=== PATIENT | female | born 1925 | race Caucasian/White ===

== ENCOUNTER 2016-08-12 15:32 | Inpatient (IN) | payer MEDICARE, OTHER ==
[2016-08-12] MEDS ORDERED: IPRATROPIUM-ALBUTEROL 3 ML NEB INHALATION STA ×2 (17:40→19:32)
[2016-08-12] MEDS ORDERED: SODIUM CHLORIDE 0.9% 1,000 ML IV STA (17:40)
--- NOTE | 2016-08-12 17:44 | ED ---
Back Pain HPI - General Chief Complaint: Back Pain/Injury Stated Complaint: Back Pain Time Seen by Provider: 08/12/16 17:20 Source: patient, family, RN notes reviewed Limitations: no limitations - History of Present Illness Initial Comments: This is a 89-year-old female history of multiple medical problems who presents with complaints of cough shortness of breath and low back pain. She states she was recently given a course of antibiotics by her oncologist she is feeling shows that she still has a cough no gross amounts of phlegm shortness of breath with exertion also increased low back pain especially today she states she had a hard time walking because of low back pain. States pain is the left lower part of her back. She denies any overt fevers chills nausea vomiting diarrhea sweats dysuria. MD Complaint: back pain, other - Related Data Home Medications Medication Instructions Recorded Confirmed Levothyroxine Sodium [Synthroid] 25 mcg PO QAM 12/11/13 08/12/16 Omeprazole [PriLOSEC] 20 tab PO Q48H 12/11/13 08/12/16 Aspirin EC [Ecotrin Low Dose] 81 mg PO HS 08/21/14 08/12/16 Multivitamins, Thera [Multivitamin] 1 tab PO HS 08/21/14 08/12/16 Ergocalciferol [Vitamin D2 50,000 unit PO QMONTH 07/13/15 08/12/16 (DRISDOL)] Furosemide [Lasix] 20 mg PO QAM 07/13/15 08/12/16 Ipratropium-Albuterol Nebulize 3 ml INHALATION RT-TID 07/13/15 08/12/16 [Duoneb 0.5 mg-3 mg/3 ml Soln] Losartan [Cozaar] 25 mg PO QAM 07/13/15 08/12/16 Acetaminophen Tab [Tylenol Tab] 325 mg PO Q6H PRN 08/12/16 08/12/16 Bimatoprost [Lumigan .01% Ophth 1 drop BOTH EYES DAILY 08/12/16 08/12/16 Soln] Dorzolamide 2% [Trusopt 2%] 1 drops BOTH EYES BID 08/12/16 08/12/16 Letrozole [Femara] 2.5 mg PO DAILY 08/12/16 08/12/16 Meclizine [Antivert] 25 mg PO TID PRN 08/12/16 08/12/16 Previous Rx's Medication Instructions Recorded Budesonide [Pulmicort] 0.5 mg INHALATION RT-BID #60 nebu 08/25/14 Carvedilol [Coreg] 6.25 mg PO AC-BID #60 tab 08/25/14 Allergies Allergy/AdvReac Type Severity Reaction Status Date / Time No Known Allergies Allergy Verified 08/12/16 16:46 Review of Systems ROS Statement: Those systems with pertinent positive or pertinent negative responses have been documented in the HPI. ROS Other: All systems not noted in ROS Statement are negative. Past Medical History Past Medical History: Cancer, Heart Failure, Hypertension, Osteoarthritis (OA), Thyroid Disorder Additional Past Medical History / Comment(s): RIGHT BREAST CA-2002,cyst on bilat kidneys,fx ankle History of Any Multi-Drug Resistant Organisms: None Reported Past Surgical History: Breast Surgery, Joint Replacement, Orthopedic Surgery Additional Past Surgical History / Comment(s): RIGHT MASTECTOMY. BOTH KNEES REPL. cataracts removed bilat Past Anesthesia/Blood Transfusion Reactions: No Reported Reaction Past Psychological History: No Psychological Hx Reported Smoking Status: Never smoker Past Alcohol Use History: None Reported Past Drug Use History: None Reported - Past Family History Sister(s) Family Medical History: Cancer Additional Family Medical History / Comment(s): breast Son(s) Family Medical History: Cancer Father Family Medical History: Cancer General Exam - General Exam Comments Initial Comments: Is a well-developed well-nourished awake alert oriented 3 female Limitations: no limitations General appearance: alert, in no apparent distress Head exam: Present: atraumatic, normocephalic, normal inspection Eye exam: Present: normal appearance, PERRL, EOMI. Absent: scleral icterus, conjunctival injection, periorbital swelling ENT exam: Present: mucous membranes dry Neck exam: Present: normal inspection. Absent: tenderness, meningismus, lymphadenopathy Respiratory exam: Present: wheezes, decreased breath sounds. Absent: respiratory distress, rales, rhonchi, stridor Cardiovascular Exam: Present: regular rate, normal rhythm, normal heart sounds. Absent: systolic murmur, diastolic murmur, rubs, gallop, clicks GI/Abdominal exam: Present: soft, normal bowel sounds. Absent: distended, tenderness, guarding, rebound, rigid Extremities exam: Present: normal inspection, full ROM, normal capillary refill. Absent: tenderness, pedal edema, joint swelling, calf tenderness Back exam: Present: tenderness, paraspinal tenderness (The paraspinous tenderness at the mid to lower lumbar level. No spinous process tenderness however. No sciatic fell at tenderness.) Neurological exam: Present: alert, oriented X3, CN II-XII intact Psychiatric exam: Present: normal affect, normal mood Skin exam: Present: warm, dry, intact, normal color. Absent: rash Course Vital Signs 08/12/16 08/12/16 08/12/16 15:42 17:31 18:15 Temperature 98.5 F Pulse Rate 77 85 84 Respiratory 20 18 Rate Blood Pressure 165/74 173/95 O2 Sat by Pulse 93 L 91 L Oximetry 08/12/16 08/12/16 18:28 18:41 Temperature Pulse Rate 81 82 Respiratory 18 Rate Blood Pressure 167/85 O2 Sat by Pulse 94 L Oximetry - Reevaluation(s) Reevaluation #1: 08/12/16 19:31 Patient is still dyspneic with diffuse wheezing. She denies any chest pain she still is a left low back pain additionally her saturation is between 89 and 92 on oxygen supplementation she does desaturate was very minimal movement and even with talking. Medical Decision Making - Lab Data Result diagrams: 08/12/16 17:53 08/12/16 17:53 Lab Results 08/12/16 08/12/16 08/12/16 Range/Units 17:53 17:53 17:53 WBC 9.2 (3.8-10.6) k/uL RBC 4.11 (3.80-5.40) m/uL Hgb 12.2 (11.4-16.0) gm/dL Hct 37.8 (34.0-46.0) % MCV 91.9 (80.0-100.0) fL MCH 29.8 (25.0-35.0) pg MCHC 32.4 (31.0-37.0) g/dL RDW 12.6 (11.5-15.5) % Plt Count 251 (150-450) k/uL Neutrophils % 76 % Lymphocytes % 12 % Monocytes % 8 % Eosinophils % 2 % Basophils % 0 % Neutrophils # 7.0 (1.3-7.7) k/uL Lymphocytes # 1.1 (1.0-4.8) k/uL Monocytes # 0.8 (0-1.0) k/uL Eosinophils # 0.2 (0-0.7) k/uL Basophils # 0.0 (0-0.2) k/uL PT (9.0-12.0) sec INR (<1.1) APTT (22.0-30.0) sec Sodium 140 (137-145) mmol/L Potassium 4.7 (3.5-5.1) mmol/L Chloride 99 (98-107) mmol/L Carbon Dioxide 32 H (22-30) mmol/L Anion Gap 9 mmol/L BUN 23 H (7-17) mg/dL Creatinine 1.63 H (0.52-1.04) mg/dL Est GFR (MDRD) Af Amer 36 (>60 ml/min/1.73 sqM) Est GFR (MDRD) Non-Af 30 (>60 ml/min/1.73 sqM) Glucose 142 H (74-99) mg/dL Calcium 9.0 (8.4-10.2) mg/dL Magnesium 1.6 (1.6-2.3) mg/dL Total Bilirubin 0.5 (0.2-1.3) mg/dL AST 35 (14-36) U/L ALT 33 (9-52) U/L Alkaline Phosphatase 96 (38-126) U/L Total Creatine Kinase 66 (30-135) U/L CK-MB (CK-2) 1.4 (0.0-2.4) ng/mL CK-MB (CK-2) Rel Index 2.1 Troponin I 0.031 (0.000-0.034) ng/mL NT-Pro-B Natriuret Pep pg/mL Total Protein 6.4 (6.3-8.2) g/dL Albumin 3.4 L (3.5-5.0) g/dL 08/12/16 08/12/16 Range/Units 17:53 17:53 WBC (3.8-10.6) k/uL RBC (3.80-5.40) m/uL Hgb (11.4-16.0) gm/dL Hct (34.0-46.0) % MCV (80.0-100.0) fL MCH (25.0-35.0) pg MCHC (31.0-37.0) g/dL RDW (11.5-15.5) % Plt Count (150-450) k/uL Neutrophils % % Lymphocytes % % Monocytes % % Eosinophils % % Basophils % % Neutrophils # (1.3-7.7) k/uL Lymphocytes # (1.0-4.8) k/uL Monocytes # (0-1.0) k/uL Eosinophils # (0-0.7) k/uL Basophils # (0-0.2) k/uL PT 10.1 (9.0-12.0) sec INR 1.0 (<1.1) APTT 22.8 (22.0-30.0) sec Sodium (137-145) mmol/L Potassium (3.5-5.1) mmol/L Chloride (98-107) mmol/L Carbon Dioxide (22-30) mmol/L Anion Gap mmol/L BUN (7-17) mg/dL Creatinine (0.52-1.04) mg/dL Est GFR (MDRD) Af Amer (>60 ml/min/1.73 sqM) Est GFR (MDRD) Non-Af (>60 ml/min/1.73 sqM) Glucose (74-99) mg/dL Calcium (8.4-10.2) mg/dL Magnesium (1.6-2.3) mg/dL Total Bilirubin (0.2-1.3) mg/dL AST (14-36) U/L ALT (9-52) U/L Alkaline Phosphatase (38-126) U/L Total Creatine Kinase (30-135) U/L CK-MB (CK-2) (0.0-2.4) ng/mL CK-MB (CK-2) Rel Index Troponin I (0.000-0.034) ng/mL NT-Pro-B Natriuret Pep 3970 pg/mL Total Protein (6.3-8.2) g/dL Albumin (3.5-5.0) g/dL - EKG Data -: EKG Interpreted by Ga EKG shows normal: sinus rhythm (Sinus rhythm rate 77 appear of 01 60 QRS duration 140 QT/QTC of 14/473. Left axis deviation left bundle-branch block pattern.) - Radiology Data Radiology results: report reviewed (I did review the x-ray report no definite acute findings.), image reviewed Critical Care Time Critical Care Time: Yes Critical Care Time: 31 minutes which includes initial presentation with history physical lab and x- ray orders. Initial treatment and reevaluation on several occasions for responsive treatment. Review of old charting that was available. Discussion with the patient's family regarding the findings. Discussion with the admitting physician. Orders and documentation of the above. Disposition Clinical Impression: Chronic obstructive pulmonary disease with acute exacerbation, Heart failure, Hypoxemia, Exertional dyspnea Disposition: ADMITTED IP TO THIS HOSP Condition: Stable
[2016-08-12 18:03] LABS: Basophils % (A) 0 %; CH 29.6; CHCM 32.3; Eosinophils # (A) 0.2 k/uL (0-0.7); Eosinophils % (A) 2 %; HCT 37.8 % (34.0-46.0); HDW 2.67; HGB 12.2 gm/dL (11.4-16.0); Luc # (Auto) 0.17; Luc % (Auto) 2; Lymphocytes # (A) 1.1 k/uL (1.0-4.8); Lymphocytes % (A) 12 %; MCH 29.8 pg (25.0-35.0); MCHC 32.4 g/dL (31.0-37.0); MCV 91.9 fL (80.0-100.0); Mean Platelet Volume 8.3; Monocytes # (A) 0.8 k/uL (0-1.0); Monocytes % (A) 8 %; Neutrophils % (A) 76 %; RBC 4.11 m/uL (3.80-5.40); RDW 12.6 % (11.5-15.5); WBC 9.2 k/uL (3.8-10.6); WBC (Perox) 9.22
[2016-08-12 18:13] LABS: Partial Thromboplastin Time 22.8 sec (22.0-30.0); Prothrombin Time 10.1 sec (9.0-12.0)
[2016-08-12 18:27] LABS: Magnesium 1.6 mg/dL (1.6-2.3); Potassium 4.7 mmol/L (3.5-5.1); Total Bilirubin 0.5 mg/dL (0.2-1.3); Total Protein 6.4 g/dL (6.3-8.2)
[2016-08-12 18:36] LABS: Creatine Kinase MB 1.4 ng/mL (0.0-2.4); Troponin I 0.031 ng/mL (0.000-0.034)
--- NOTE | 2016-08-12 18:38 | XR ---
EXAMINATION TYPE: XR chest 2V DATE OF EXAM: 08/12/2016 6:34 PM COMPARISON: 03/16/2016 HISTORY: Difficulty breathing TECHNIQUE: Frontal and lateral views of the chest are obtained. FINDINGS: Heart is probably enlarged. There is a large hiatal hernia. There are no hilar masses. The re is no heart failure. There is no pleural effusion. Thoracic aorta is atheromatous. IMPRESSION: Large hiatal hernia. Mild cardiomegaly. No acute lung disease. No change.
[2016-08-12] MEDS ORDERED: KETOROLAC 30 MG/ML 1 ML VIAL IVP STA (19:29)
[2016-08-12] MEDS ORDERED: methylPREDNISolone SOD SUCCI 125 MG/2 ML VIAL IV STA (19:29)
[2016-08-12] MEDS ORDERED: NITROGLYCERIN OINT 1 INCH/GM PACKET TOPICAL STA (19:30)
[2016-08-12] MEDS ORDERED: FUROSEMIDE 10 MG/ML 4 ML VIAL IV STA (19:30)
[2016-08-12] MEDS ORDERED: ACETAMINOPHEN TAB 325 MG TAB PO PRN (19:37)
[2016-08-12] MEDS ORDERED: MECLIZINE 25 MG TAB PO PRN (19:37)
[2016-08-12] MEDS: IPRATROPIUM-ALBUTEROL 3 ML NEB INHALATION SCH (20:57)
[2016-08-12] MEDS: DORZOLAMIDE HCL 2% DROPS 10 ML BTL BOTH EYES SCH (21:20)
[2016-08-12] MEDS: PANTOPRAZOLE 40 MG TABLET PO SCH (21:20)
[2016-08-12] MEDS: ASPIRIN 81 MG CHEW PO SCH (21:20)
[2016-08-12] MEDS: SODIUM CHLORIDE 0.9% 1,000 ML IV SCH (21:23)
[2016-08-12] MEDS: NITROGLYCERIN OINT 1 INCH/GM PACKET TOPICAL SCH (23:41)
[2016-08-13] MEDS ORDERED: methylPREDNISolone SOD SUCCI 125 MG/2 ML VIAL IV SCH
[2016-08-13] MEDS: IPRATROPIUM-ALBUTEROL 3 ML NEB INHALATION SCH ×6 (00:38→19:41)
[2016-08-13] MEDS: NITROGLYCERIN OINT 1 INCH/GM PACKET TOPICAL SCH ×3 (05:22→17:26)
[2016-08-13] MEDS: LEVOTHYROXINE 25 MCG TAB PO SCH (05:22)
[2016-08-13] MEDS: LATANOPROST 0.005% OPHTH DROPS 2.5 ML BTL BOTH EYES SCH (08:52)
[2016-08-13] MEDS: DORZOLAMIDE HCL 2% DROPS 10 ML BTL BOTH EYES SCH ×2 (08:52→20:29)
[2016-08-13] MEDS: FUROSEMIDE 10 MG/ML 4 ML VIAL IV SCH ×2 (08:54→20:28)
[2016-08-13] MEDS: CARVEDILOL 6.25 MG TAB PO SCH ×2 (08:54→17:26)
[2016-08-13] MEDS: LOSARTAN 25 MG TAB PO SCH (08:55)
[2016-08-13] MEDS ORDERED: LETROZOLE 2.5 MG TAB PO SCH (09:00)
[2016-08-13] MEDS ORDERED: FUROSEMIDE 40 MG TAB PO SCH (09:00)
--- NOTE | 2016-08-13 11:42 | P.CNPUL ---
History of Present Illness Consult date: 08/13/16 Requesting physician: Bismark Perry Reason for consult: COPD Chief complaint: Shortness of breath History of present illness: This is an 89-year-old female evaluated and examined today on the fifth floor. The patient came in to the emergency room complaining of shortness of breath and low back pain. She states that recently her oncologist gave her antibiotics and it did not alter and the coughing continues with white sputum. The patient feels that all of the coughing has caused her to have the back pain , and the pain is making it difficult ambulate. The patient denies any chest pain, fevers, chills, nausea, vomiting, diarrhea, or sweats. Upon examination the patient is resting in bedside chair, she continues to complain of chronic persistent cough, and has been bringing up white to pale yellow sputum today. The patient states that she feels very congested in her chest and feels she needs some medication to help her health center assistant bringing up sputum. Review of Systems 14 point review of systems was completed and is negative other than what's noted in the HPI Past Medical History Past Medical History: Cancer, Heart Failure, Hypertension, Osteoarthritis (OA), Thyroid Disorder Additional Past Medical History / Comment(s): RIGHT BREAST CA-2002,cyst on bilat kidneys,fx ankle History of Any Multi-Drug Resistant Organisms: None Reported Past Surgical History: Breast Surgery, Joint Replacement, Orthopedic Surgery Additional Past Surgical History / Comment(s): RIGHT MASTECTOMY. BOTH KNEES REPL. cataracts removed bilat Past Anesthesia/Blood Transfusion Reactions: No Reported Reaction Past Psychological History: No Psychological Hx Reported Smoking Status: Never smoker Past Alcohol Use History: None Reported Past Drug Use History: None Reported - Past Family History Sister(s) Family Medical History: Cancer Additional Family Medical History / Comment(s): breast Son(s) Family Medical History: Cancer Father Family Medical History: Cancer Medications and Allergies Home Medications Medication Instructions Recorded Confirmed Type Levothyroxine Sodium [Synthroid] 25 mcg PO QAM 12/11/13 08/12/16 History Omeprazole [PriLOSEC] 20 tab PO Q48H 12/11/13 08/12/16 History Aspirin EC [Ecotrin Low Dose] 81 mg PO HS 08/21/14 08/12/16 History Multivitamins, Thera [Multivitamin] 1 tab PO HS 08/21/14 08/12/16 History Ergocalciferol [Vitamin D2 50,000 unit PO QMONTH 07/13/15 08/12/16 History (DRISDOL)] Furosemide [Lasix] 20 mg PO QAM 07/13/15 08/12/16 History Ipratropium-Albuterol Nebulize 3 ml INHALATION RT-TID 07/13/15 08/12/16 History [Duoneb 0.5 mg-3 mg/3 ml Soln] Losartan [Cozaar] 25 mg PO QAM 07/13/15 08/12/16 History Acetaminophen Tab [Tylenol Tab] 325 mg PO Q6H PRN 08/12/16 08/12/16 History Bimatoprost [Lumigan .01% Ophth 1 drop BOTH EYES DAILY 08/12/16 08/12/16 History Soln] Dorzolamide 2% [Trusopt 2%] 1 drops BOTH EYES BID 08/12/16 08/12/16 History Meclizine [Antivert] 25 mg PO TID PRN 08/12/16 08/12/16 History Allergies Allergy/AdvReac Type Severity Reaction Status Date / Time No Known Allergies Allergy Verified 08/12/16 16:46 Physical Exam Vitals: Vital Signs Temp Pulse Pulse Resp BP Pulse Ox 08/13/16 11:10 84 08/13/16 08:23 98.5 F 83 18 148/73 93 L 08/13/16 07:27 80 08/13/16 07:18 79 08/12/16 21:40 98.6 F 82 16 133/63 93 L Intake and Output 08/12/16 08/13/16 08/13/16 22:59 06:59 14:59 Intake Total 160 Balance 160 Intake: IV 160 Sodium Chloride 0.9% 1, 160 000 ml @ 20 mls/hr IV . Q24H [facility] Rx#:[id number] Other: Voiding Method Bedside Commode Bedside Commode # Voids 1 1 1 Weight 76.657 kg GENERAL EXAM: Alert, active, comfortable in no apparent distress. HEAD: Normocephalic. EYES: Normal reaction of pupils, equal size. NOSE: Clear with pink turbinates. THROAT: No erythema or exudates. NECK: No masses, no JVD. CHEST: No chest wall deformity. LUNGS: Equal air entry with inspiratory and expiratory wheezing noted. Bases diminished CVS: S1 and S2 normal with no audible mumurs, regular rhythm. ABDOMEN: No hepatosplenomegaly, normal bowel sounds, no guarding or rigidity. EXTREMITIES: No edema noted, pedal pulses palpable. SKIN: No rashes CENTRAL NERVOUS SYSTEM: No focal deficits, tone is normal in all 4 extremities. Results - Laboratory Findings CBC and BMP: 08/12/16 17:53 08/12/16 17:53 PT/INR, D-dimer PT 10.1 sec (9.0-12.0) 08/12/16 17:53 INR 1.0 (<1.1) 08/12/16 17:53 - Diagnostic Findings Chest x-ray: report reviewed, image reviewed Assessment and Plan Plan: Assessment Acute exacerbation of COPD Tracheobronchitis Acute Hypoxemia Exertional dyspnea Congestive heart failure History of hypertension Plan Medications reviewed and will be continued. We will add budesonide to her nebulizer treatments. We will start with the inhaled steroid to protect kidney function, however possibly will add IV steroids if patient doesn't respond to inhaled steroids. We will also add guaifenesin cough syrup as well as a flutter valve to help bring up her secretions. Continue with supportive care. Continue with supplemental oxygen to keep saturations above 92%. We will continue to monitor labs and adjust treatment as necessary. I performed an examination of the patient and discussed their management with the nurse practitioner. I have reviewed the nurse practitioner's note and agree with the documented findings and plan of care.
[2016-08-13] MEDS: AZITHROMYCIN 500 MG in SODIUM CHLORIDE 0.9% 250 ML IVPB SCH (14:34)
--- NOTE | 2016-08-13 14:54 | P.HPIM ---
History of Present Illness H&P Date: 08/13/16 Chief Complaint: Shortness of breath, cough This is an 89-year-old female patient of Dr. Bobby Camarillo and she also follows with Dr. Samayoa and Dr. Moore. She sees Dr. Camarillo every 6 months and she has an appointment next week. She has underlying history of hypothyroidism, CAD, hypertension and breast cancer diagnosed in 2002, COPD, chronic kidney disease stage III, bilateral glaucoma under the care of Dr. Salgado. Patient complains of shortness of breath with cough and yellow sputum production. She denies any fever or chills. She states she has wheezing at night. She states she has been using her nebulizer 3 times a day without any improvement. She presented to [facility] emergency center with the above complaints. Chest x-ray showed large hiatal hernia. Mild cardiomegaly. No acute lung disease. No change. CBC was within normal limits. BUN 23 and creatinine 1.63. Her baseline appears to be about 1.6. ProBNP was 3970. Influenza testing and B-. Patient was placed on MedSurg floor and consult with Dr. Samayoa requested. Patient will be placed on Rocephin and azithromycin as well as DuoNeb treatments, Pulmicort, IV Lasix. Review of Systems All systems: negative Constitutional: Reports weakness, Denies chills, Denies fever Eyes: denies blurred vision, denies pain Ears, nose, mouth and throat: Denies headache, Denies sore throat Cardiovascular: Reports dyspnea on exertion, Reports shortness of breath, Denies chest pain Respiratory: Reports cough, Reports cough with sputum, Reports dyspnea Gastrointestinal: Denies abdominal pain, Denies diarrhea, Denies nausea, Denies vomiting Genitourinary: Denies dysuria, Denies hematuria Musculoskeletal: Denies myalgias Integumentary: Denies pruritus, Denies rash Neurological: Denies numbness, Denies weakness Psychiatric: Denies anxiety, Denies depression Endocrine: Denies fatigue, Denies weight change Past Medical History Past Medical History: Cancer, Heart Failure, Hypertension, Osteoarthritis (OA), Thyroid Disorder Additional Past Medical History / Comment(s): RIGHT BREAST CA-2002,cyst on bilat kidneys,fx ankle, glaucoma under the care of Dr. Salgado, chronic kidney disease stage III History of Any Multi-Drug Resistant Organisms: None Reported Past Surgical History: Breast Surgery, Joint Replacement, Orthopedic Surgery Additional Past Surgical History / Comment(s): RIGHT MASTECTOMY. BOTH KNEES REPL. I lateral cataract removal and intraocular lens implants Past Anesthesia/Blood Transfusion Reactions: No Reported Reaction Past Psychological History: No Psychological Hx Reported Smoking Status: Never smoker Past Alcohol Use History: None Reported Additional Past Alcohol Use History / Comment(s): Patient states she has been a nonsmoker. She denies any alcohol abuse or use. Past Drug Use History: None Reported - Past Family History Sister(s) Family Medical History: Cancer Additional Family Medical History / Comment(s): Patient has one sister that from breast cancer. She has 2 sisters alive with no major medical problems. Son(s) Family Medical History: Cancer Additional Family Medical History / Comment(s): Patient has one child that from cancer throughout his body at the time of diagnosis. 3 children with no major medical problems. Father Family Medical History: Cancer Additional Family Medical History / Comment(s): Father at age 45 from stomach cancer Mother Additional Family Medical History / Comment(s): Mother at age 80 from cerebral hemorrhage. Medications and Allergies Home Medications Medication Instructions Recorded Confirmed Type Levothyroxine Sodium [Synthroid] 25 mcg PO QAM 12/11/13 08/12/16 History Omeprazole [PriLOSEC] 20 tab PO Q48H 12/11/13 08/12/16 History Aspirin EC [Ecotrin Low Dose] 81 mg PO HS 08/21/14 08/12/16 History Multivitamins, Thera [Multivitamin] 1 tab PO HS 08/21/14 08/12/16 History Ergocalciferol [Vitamin D2 50,000 unit PO QMONTH 07/13/15 08/12/16 History (DRISDOL)] Furosemide [Lasix] 20 mg PO QAM 07/13/15 08/12/16 History Ipratropium-Albuterol Nebulize 3 ml INHALATION RT-TID 07/13/15 08/12/16 History [Duoneb 0.5 mg-3 mg/3 ml Soln] Losartan [Cozaar] 25 mg PO QAM 07/13/15 08/12/16 History Acetaminophen Tab [Tylenol Tab] 325 mg PO Q6H PRN 08/12/16 08/12/16 History Bimatoprost [Lumigan .01% Ophth 1 drop BOTH EYES DAILY 08/12/16 08/12/16 History Soln] Dorzolamide 2% [Trusopt 2%] 1 drops BOTH EYES BID 08/12/16 08/12/16 History Meclizine [Antivert] 25 mg PO TID PRN 08/12/16 08/12/16 History Allergies Allergy/AdvReac Type Severity Reaction Status Date / Time No Known Allergies Allergy Verified 08/12/16 16:46 Physical Exam Vitals: Vital Signs Temp Pulse Pulse Resp BP Pulse Ox 08/13/16 11:30 80 08/13/16 11:10 84 08/13/16 08:23 98.5 F 83 18 148/73 93 L 08/13/16 07:27 80 08/13/16 07:18 79 08/12/16 21:40 98.6 F 82 16 133/63 93 L Intake and Output 08/12/16 08/13/16 08/13/16 22:59 06:59 14:59 Intake Total 160 Balance 160 Intake: IV 160 Sodium Chloride 0.9% 1, 160 000 ml @ 20 mls/hr IV . Q24H [facility] Rx#:[id number] Other: Voiding Method Bedside Commode Bedside Commode # Voids 1 1 1 Weight 76.657 kg General appearance: average body habitus, cooperative, no acute distress - EENT Eyes: Reports anicteric sclerae, Reports PERRLA, Reports dentition normal, Reports normal apperance ENT: Reports hearing grossly normal - Neck Neck: Reports normal ROM - Respiratory Respiratory: bilateral: Inspiratory expiratory wheezing, diminished in the bases , negative: dullness, rales, rhonchi - Cardiovascular Rhythm: regular Heart sounds: normal: S1 - Gastrointestinal General gastrointestinal: Reports normal bowel sounds, Reports soft, Denies absent bowel sounds, Denies decreased bowel sounds, Denies distended, Denies hepatomegaly, Denies hyperactive bowel sounds, Denies organomegaly, Denies rigid , Denies scaphoid, Denies splenomegaly, Denies tenderness, Denies umbilical hernia, Denies ventral hernia - Integumentary Integumentary: Reports normal, Reports normal turgor - Neurologic Neurologic: CNII-XII intact - Musculoskeletal Musculoskeletal: Reports strength equal bilaterally - Psychiatric Psychiatric: Reports A&O x's 3, Reports appropriate affect, Reports intact judgment & insight Results CBC & Chem 7: 08/12/16 17:53 08/12/16 17:53 Thrombosis Risk Factor Assmnt - DVT/VTE Prophylaxis DVT/VTE Prophylaxis: Pharmacologic Prophylaxis ordered - Choose All That Apply Any of the Below Risk Factors Present?: Yes Each Factor Represents 1 point: Abnormal pulmonary function (COPD), Obesity ( BMI >25) Each Risk Factor Represents 3 Points: Age 75 years or older Thrombosis Risk Factor Assessment Total Risk Factor Score: 5 Thrombosis Risk Factor Assessment Level: High Risk Assessment and Plan Plan: 1. Acute exacerbation of COPD with purulent tracheobronchitis and acute on chronic systolic heart failure. Consult with Dr. Yao minor. Continue DuoNeb treatments and Pulmicort twice daily. Continue Mucinex, Robitussin. Patient states she is unable to take oral steroids or IV steroids due to glaucoma. Continue azithromycin and ceftriaxone. Continue Lasix 40 mg IV twice daily. Echocardiogram ordered. 2. Hypertension. Continue Cozaar 25 mg daily, Coreg 6.25 mg twice daily. 3. Hypothyroidism. Continue levothyroxine 25 g daily. 4. Glaucoma. Continue eyedrops. 5. Chronic kidney disease stage III. Ovoid nephrotoxic agents. 6. Gastrointestinal prophylaxis. Protonix. 7. DVT prophylaxis. Lovenox. Patient will be admitted to the hospital for a minimum of 2 night stay. Discharge plan: Most likely return home. Impression and plan of care have been directed as dictated by the signing physician. Laura Castellanos nurse practitioner acting as scribe for signing physician. Time with Patient: Greater than 30
[2016-08-13] MEDS ORDERED: IPRATROPIUM-ALBUTEROL 3 ML NEB INHALATION PRN (19:25)
[2016-08-13] MEDS: BUDESONIDE 1 MG/2 ML NEBU INHALATION SCH (19:41)
[2016-08-13] MEDS: ASPIRIN 81 MG CHEW PO SCH (20:28)
[2016-08-13] MEDS: BRIMONIDINE TARTRATE 0.2% DROPS 5 ML BTL BOTH EYES SCH (21:42)
[2016-08-14] MEDS: NITROGLYCERIN OINT 1 INCH/GM PACKET TOPICAL SCH ×5 (00:15→23:22)
[2016-08-14] MEDS: SODIUM CHLORIDE 0.9% 1,000 ML IV SCH (00:18)
[2016-08-14] MEDS: LEVOTHYROXINE 25 MCG TAB PO SCH (05:25)
[2016-08-14] MEDS: BUDESONIDE 1 MG/2 ML NEBU INHALATION SCH ×2 (07:20→20:09)
[2016-08-14] MEDS: IPRATROPIUM-ALBUTEROL 3 ML NEB INHALATION SCH ×4 (07:20→20:09)
--- NOTE | 2016-08-14 07:50 | ECHOF ---
Referral Reason:lvfunction MEASUREMENTS -------- HEIGHT: 160.0 cm WEIGHT: 76.7 kg BP: 148/73 IVSd: 1.9 cm (0.6 - 1.1) LVIDd: 3.3 cm (3.9 - 5.3) LVPWd: 1.8 cm (0.6 - 1.1) IVSs: 1.8 cm LVIDs: 2.9 cm LVPWs: 2.1 cm Ao Diam: 3.1 cm (2.0 - 3.7) AV Cusp: 1.9 cm (1.5 - 2.6) LA Diam: 2.5 cm (2.7 - 3.8) MV EXCURSION: 15.618 mm (> 18.000) MV EF SLOPE: 30 mm/s (70 - 150) EPSS: 0.8 cm MV E Anuel: 0.36 m/s MV DecT: 202 ms MV A Anuel: 0.50 m/s MV E/A Ratio: 0.72 RAP: 5.00 mmHg RVSP: 11.24 mmHg FINDINGS -------- Sinus rhythm with extra systolic beats. This was a technically difficult study with suboptimal views. There is severe concentric left ventricular hypertrophy. There is severe global hypokinesis of LV . Overall left ventricular systolic function is severely impaired with, an EF between 20 - 25 %. The RV was not well visualized. The left atrium was not well visualized. The right atrium was not well visualized. 1.5mg of Definity was utilized for enhancement of images Aortic valve is trileaflet and is mildly thickened. The mitral valve leaflets are mildly thickened. There is trace mitral regurgitation. Trace tricuspid regurgitation present. The right ventricular systolic pressure, as measured by Doppler, is 11.24mmHg. Pulmonic valve appears structurally normal. The pericardium is normal. CONCLUSIONS -------- 1. Sinus rhythm with extra systolic beats. 2. Aortic valve is trileaflet and is mildly thickened. 3. The mitral valve leaflets are mildly thickened. 4. There is trace mitral regurgitation. 5. Trace tricuspid regurgitation present. 6. The right ventricular systolic pressure, as measured by Doppler, is 11.24mmHg. 7. Pulmonic valve appears structurally normal. 8. The pericardium is normal. 9. This was a technically difficult study with suboptimal views. 10. There is severe concentric left ventricular hypertrophy. 11. There is severe global hypokinesis of LV . 12. Overall left ventricular systolic function is severely impaired with, an EF between 20 - 25 %. 13. The RV was not well visualized. 14. The left atrium was not well visualized. 15. The right atrium was not well visualized. 16. 1.5mg of Definity was utilized for enhancement of images MANAGEMENT AND BUDGET ANALYST: Miguelina Anderson RDCS
[2016-08-14 08:21] LABS: Calcium 8.9 mg/dL (8.4-10.2)
[2016-08-14] MEDS: LATANOPROST 0.005% OPHTH DROPS 2.5 ML BTL BOTH EYES SCH (09:37)
[2016-08-14] MEDS: BRIMONIDINE TARTRATE 0.2% DROPS 5 ML BTL BOTH EYES SCH ×2 (09:39→20:00)
[2016-08-14] MEDS: DORZOLAMIDE HCL 2% DROPS 10 ML BTL BOTH EYES SCH ×2 (09:39→20:00)
[2016-08-14] MEDS: LOSARTAN 25 MG TAB PO SCH (09:39)
[2016-08-14] MEDS: CARVEDILOL 6.25 MG TAB PO SCH ×2 (09:39→17:45)
[2016-08-14] MEDS: FUROSEMIDE 10 MG/ML 4 ML VIAL IV SCH ×2 (09:40→20:00)
[2016-08-14] MEDS: guaiFENesin SYRUP 100MG/5ML 200 MG/10 ML CUP PO PRN (09:51)
--- NOTE | 2016-08-14 10:36 | P.PN ---
Subjective This is an 89-year-old female evaluated and examined today on the fifth floor. This patient is known to our office. This patient came into the emergency room complaining of shortness of breath and low back pain. She states that recently her oncologist gave her antibiotics and it did not alter, and the coughing continued with white sputum. The patient feels that all the coughing has caused her to have the back pain, and the pain is making it difficult to ambulate. The patient denies any chest pain, fevers, chills, nausea, vomiting, diarrhea or sweats. The patient was influenza negative. Upon examination the patient is resting up in bed she continues to complain of the chronic persistent cough with some white sputum. The patient got her first dose of cough syrup this morning and feels like it is making a difference. Objective - Vital Signs Vital signs: Vital Signs Temp 97.1 F L 08/14/16 07:41 Pulse 80 08/14/16 07:43 Resp 18 08/14/16 07:41 BP 119/66 08/14/16 07:41 Pulse Ox 92 L 08/14/16 07:41 Intake & Output 08/13/16 08/14/16 08/14/16 18:59 06:59 18:59 Weight 76.657 kg 67 kg Other: Voiding Method Toilet Toilet Toilet Bedside Commode Bedside Commode Bedside Commode # Voids 1 1 - Exam GENERAL EXAM: Alert, active, comfortable in no apparent distress. HEAD: Normocephalic. EYES: Normal reaction of pupils, equal size. NOSE: Clear with pink turbinates. THROAT: No erythema or exudates. NECK: No masses, no JVD. CHEST: No chest wall deformity. LUNGS: Equal air entry with inspiratory and expiratory wheezes. Bases are diminished. CVS: S1 and S2 normal with no audible mumurs, regular rhythm. ABDOMEN: No hepatosplenomegaly, normal bowel sounds, no guarding or rigidity. EXTREMITIES: No edema noted, pedal pulses palpable. SKIN: No rashes CENTRAL NERVOUS SYSTEM: No focal deficits, tone is normal in all 4 extremities. - Labs CBC & Chem 7: 08/12/16 17:53 08/14/16 07:31 Labs: Abnormal Lab Results - Last 24 Hours (Table) 08/14/16 Range/Units 07:31 Chloride 97 L (98-107) mmol/L BUN 33 H (7-17) mg/dL Creatinine 1.89 H (0.52-1.04) mg/dL Glucose 134 H (74-99) mg/dL Assessment and Plan Plan: Assessment Acute exacerbation of COPD Tracheobronchitis Acute Hypoxemia Exertional dyspnea Congestive heart failure History of hypertension Plan Medications reviewed and will be continued. Continue with nebulizer treatments. Continue with guaifenesin cough syrup as well as a flutter valve to help bring up her secretions. Continue with supportive care. Continue with supplemental oxygen to keep saturations above 92%. Echocardiogram revealed an EF of 20-25%. We will continue to monitor labs and adjust treatment as necessary. I performed an examination of the patient and discussed their management with the nurse practitioner. I have reviewed the nurse practitioner's note and agree with the documented findings and plan of care.
[2016-08-14] MEDS: AZITHROMYCIN 500 MG in SODIUM CHLORIDE 0.9% 250 ML IVPB SCH (12:42)
--- NOTE | 2016-08-14 14:00 | P.PN ---
Subjective This is an 89-year-old female patient of Dr. Bobby Camarillo and she also follows with Dr. Samayoa and Dr. Moore. She sees Dr. Camarillo every 6 months and she has an appointment next week. She has underlying history of hypothyroidism, CAD, hypertension and breast cancer diagnosed in 2002, COPD, chronic kidney disease stage III, bilateral glaucoma under the care of Dr. Salgado. Patient complains of shortness of breath with cough and yellow sputum production. She denies any fever or chills. She states she has wheezing at night. She states she has been using her nebulizer 3 times a day without any improvement. She presented to [facility] emergency center with the above complaints. Chest x-ray showed large hiatal hernia. Mild cardiomegaly. No acute lung disease. No change. CBC was within normal limits. BUN 23 and creatinine 1.63. Her baseline appears to be about 1.6. ProBNP was 3970. Influenza testing and B-. [facility] consult with Dr. Samayoa requested. Patient will be placed on Rocephin and azithromycin as well as DuoNeb treatments, Pulmicort, IV Lasix. 08/14: Echocardiogram reveals trace mitral regurgitation, trace tricuspid regurgitation, severe concentric left ventricular hypertrophy, severe global hypokinesia of LV, EF 20-25%. Patient is doing unit on IV Lasix 40 mg every 12 hours. Cardiology consult requested. Repeat labs showed BUN of 33 and creatinine 1.89. PT and OT have been added. Is complaining of cough. No worsening shortness of breath. Objective - Vital Signs Vital signs: Vital Signs Temp 97.1 F L 08/14/16 07:41 Pulse 80 08/14/16 07:43 Resp 18 08/14/16 07:41 BP 119/66 08/14/16 07:41 Pulse Ox 92 L 08/14/16 07:41 Intake & Output 08/13/16 08/14/16 08/14/16 18:59 06:59 18:59 Weight 76.657 kg 67 kg Other: Voiding Method Toilet Toilet Toilet Bedside Commode Bedside Commode Bedside Commode # Voids 1 1 - Exam General appearance: average body habitus, cooperative, no acute distress - EENT Eyes: Reports anicteric sclerae, Reports PERRLA, Reports dentition normal, Reports normal apperance ENT: Reports hearing grossly normal - Neck Neck: Reports normal ROM - Respiratory Respiratory: bilateral: Inspiratory expiratory wheezing, diminished in the bases , negative: dullness, rales, rhonchi - Cardiovascular Rhythm: regular Heart sounds: normal: S1 - Gastrointestinal General gastrointestinal: Reports normal bowel sounds, Reports soft, Denies absent bowel sounds, Denies decreased bowel sounds, Denies distended, Denies hepatomegaly, Denies hyperactive bowel sounds, Denies organomegaly, Denies rigid , Denies scaphoid, Denies splenomegaly, Denies tenderness, Denies umbilical hernia, Denies ventral hernia - Integumentary Integumentary: Reports normal, Reports normal turgor - Neurologic Neurologic: CNII-XII intact - Musculoskeletal Musculoskeletal: Reports strength equal bilaterally - Psychiatric Psychiatric: Reports A&O x's 3, Reports appropriate affect, Reports intact judgment & insight - Labs CBC & Chem 7: 08/12/16 17:53 08/14/16 07:31 Labs: Abnormal Lab Results - Last 24 Hours (Table) 08/14/16 Range/Units 07:31 Chloride 97 L (98-107) mmol/L BUN 33 H (7-17) mg/dL Creatinine 1.89 H (0.52-1.04) mg/dL Glucose 134 H (74-99) mg/dL Assessment and Plan Plan: 1. Acute exacerbation of COPD with purulent tracheobronchitis and acute on chronic systolic heart failure. Consult with Dr. Yao minor. Continue DuoNeb treatments and Pulmicort twice daily. Continue Mucinex, Robitussin. Patient states she is unable to take oral steroids or IV steroids due to glaucoma. Continue azithromycin and ceftriaxone. Continue Lasix 40 mg IV twice daily. Echocardiogram as above. Cardiology consult requested. 2. Hypertension. Continue Cozaar 25 mg daily, Coreg 6.25 mg twice daily. 3. Hypothyroidism. Continue levothyroxine 25 g daily. 4. Glaucoma. Continue eyedrops. 5. Chronic kidney disease stage III. Ovoid nephrotoxic agents. 6. Gastrointestinal prophylaxis. Protonix. 7. DVT prophylaxis. Lovenox. Discharge plan: Most likely return home. Impression and plan of care have been directed as dictated by the signing physician. Laura Castellanos nurse practitioner acting as scribe for signing physician. Time with Patient: Greater than 30
[2016-08-14] MEDS: ASPIRIN 81 MG CHEW PO SCH (20:00)
[2016-08-14] MEDS: PANTOPRAZOLE 40 MG TABLET PO SCH (20:00)
[2016-08-15] MEDS: NITROGLYCERIN OINT 1 INCH/GM PACKET TOPICAL SCH ×2 (05:31→12:29)
[2016-08-15] MEDS: LEVOTHYROXINE 25 MCG TAB PO SCH (05:31)
[2016-08-15] MEDS: BUDESONIDE 1 MG/2 ML NEBU INHALATION SCH ×2 (07:21→19:40)
[2016-08-15] MEDS: IPRATROPIUM-ALBUTEROL 3 ML NEB INHALATION SCH ×4 (07:21→19:40)
[2016-08-15 07:49] LABS: Calcium 8.7 mg/dL (8.4-10.2); Potassium 3.7 mmol/L (3.5-5.1)
[2016-08-15] MEDS: LATANOPROST 0.005% OPHTH DROPS 2.5 ML BTL BOTH EYES SCH (08:28)
[2016-08-15] MEDS: DORZOLAMIDE HCL 2% DROPS 10 ML BTL BOTH EYES SCH ×2 (08:32→20:20)
[2016-08-15] MEDS: BRIMONIDINE TARTRATE 0.2% DROPS 5 ML BTL BOTH EYES SCH ×2 (08:32→20:20)
[2016-08-15] MEDS: LOSARTAN 25 MG TAB PO SCH (08:33)
[2016-08-15] MEDS: FUROSEMIDE 10 MG/ML 4 ML VIAL IV SCH (08:33)
[2016-08-15] MEDS: CARVEDILOL 6.25 MG TAB PO SCH ×2 (08:33→17:00)
[2016-08-15] MEDS: guaiFENesin SYRUP 100MG/5ML 200 MG/10 ML CUP PO PRN (08:42)
[2016-08-15] MEDS: SODIUM CHLORIDE 0.9% 1,000 ML IV SCH (08:42)
--- NOTE | 2016-08-15 10:59 | P.PN ---
Subjective This is an 89-year-old female evaluated and examined today on the fifth floor. This patient is known to our office. This patient came into the emergency room complaining of shortness of breath and low back pain. She states that recently her oncologist gave her antibiotics and it did not alter, and the coughing continued with white sputum. The patient feels that all the coughing has caused her to have the back pain, and the pain is making it difficult to ambulate. The patient denies any chest pain, fevers, chills, nausea, vomiting, diarrhea or sweats. The patient was influenza negative. Upon examination the patient is resting up in bed she continues to complain of the chronic persistent cough with some white sputum. The patient has PRN cough syrup and feels like it is helping her. Objective - Vital Signs Vital signs: Vital Signs Temp 97 F L 08/15/16 07:00 Pulse 77 08/15/16 07:00 Resp 20 08/15/16 07:00 BP 116/55 08/15/16 07:00 Pulse Ox 96 08/15/16 07:00 Intake & Output 08/14/16 08/15/16 08/15/16 18:59 06:59 18:59 Intake Total 590 Balance 590 Weight 68 kg Intake: Oral 590 Other: Voiding Method Toilet Toilet Bedside Commode Bedside Commode # Voids 1 2 - Exam GENERAL EXAM: Alert, active, comfortable in no apparent distress. HEAD: Normocephalic. EYES: Normal reaction of pupils, equal size. NOSE: Clear with pink turbinates. THROAT: No erythema or exudates. NECK: No masses, no JVD. CHEST: No chest wall deformity. LUNGS: Equal air entry with inspiratory and expiratory wheezes. Bases are diminished. CVS: S1 and S2 normal with no audible mumurs, regular rhythm. ABDOMEN: No hepatosplenomegaly, normal bowel sounds, no guarding or rigidity. EXTREMITIES: No edema noted, pedal pulses palpable. SKIN: No rashes CENTRAL NERVOUS SYSTEM: No focal deficits, tone is normal in all 4 extremities. - Labs CBC & Chem 7: 08/12/16 17:53 08/15/16 07:00 Labs: Abnormal Lab Results - Last 24 Hours (Table) 08/15/16 Range/Units 07:00 BUN 41 H (7-17) mg/dL Creatinine 2.34 H (0.52-1.04) mg/dL Glucose 139 H (74-99) mg/dL Assessment and Plan Plan: Assessment Acute exacerbation of COPD Tracheobronchitis Acute Hypoxemia Exertional dyspnea Congestive heart failure History of hypertension Plan Medications reviewed and will be continued. Continue with nebulizer treatments. Continue with guaifenesin cough syrup as well as a flutter valve to help bring up her secretions. Continue with supportive care. Continue with supplemental oxygen to keep saturations above 92%. Echocardiogram revealed an EF of 20-25%. We will continue to monitor labs and adjust treatment as necessary. I performed an examination of the patient and discussed their management with the nurse practitioner. I have reviewed the nurse practitioner's note and agree with the documented findings and plan of care.
--- NOTE | 2016-08-15 11:14 | P.CRDCN ---
History of Present Illness Consult date: 08/15/16 Consult reason: congestive heart failure History of present illness: 89-year-old lady with history of chronic systolic heart failure hypertension hypothyroidism chronic deep cube ulcer and chronic renal insufficiency is admitted to hospital with complaints of cough shortness of breath and productive sputum. She also had weight gain and mild leg edema. She had been treated with intravenous diuretics with significant improvement in her symptoms and leg swelling. Patient has also been diagnosed with bronchitis and the manufacturing supervisor is treating her with nebulizers and antibiotics. Patient has known chronic congestive heart failure. An echocardiogram on this admission revealed severe LV systolic dysfunction. I think we're over diuresing her at the moment I'm going to cut back on the Lasix to once a day. Congestive heart failure has improved significantly. Review of Systems Constitutional: Denies chills. Denies fever. Eyes: Denies blurred vision. Denies pain. Ears, nose, mouth and throat: Denies headache. Denies sore throat. Cardiovascular: Denies chest pain. Denies shortness of breath. Respiratory: Cough sputum shortness of breath Gastrointestinal: Denies abdominal pain. Denies diarrhea. Denies nausea. Denies vomiting. Musculoskeletal: Denies myalgias. Integumentary: Denies pruritus. Denies rash. Neurological: Denies numbness. Denies weakness. Psychiatric: Denies anxiety. Denies depression. Endocrine: Denies fatigue. Denies weight change. Genitourinary: Denies burning, hematuria, frequency of urination. Hematological: No anemia or excess bleeding. Past Medical History Past Medical History: Cancer, Heart Failure, Hypertension, Osteoarthritis (OA), Thyroid Disorder Additional Past Medical History / Comment(s): RIGHT BREAST CA-2002,cyst on bilat kidneys,fx ankle, glaucoma under the care of Dr. Salgado, chronic kidney disease stage III History of Any Multi-Drug Resistant Organisms: None Reported Past Surgical History: Breast Surgery, Joint Replacement, Orthopedic Surgery Additional Past Surgical History / Comment(s): RIGHT MASTECTOMY. BOTH KNEES REPL. I lateral cataract removal and intraocular lens implants Past Anesthesia/Blood Transfusion Reactions: No Reported Reaction Past Psychological History: No Psychological Hx Reported Smoking Status: Never smoker Past Alcohol Use History: None Reported Additional Past Alcohol Use History / Comment(s): Patient states she has been a nonsmoker. She denies any alcohol abuse or use. Past Drug Use History: None Reported - Past Family History Mother Additional Family Medical History / Comment(s): Mother at age 80 from cerebral hemorrhage. Sister(s) Family Medical History: Cancer Additional Family Medical History / Comment(s): Patient has one sister that from breast cancer. She has 2 sisters alive with no major medical problems. Son(s) Family Medical History: Cancer Additional Family Medical History / Comment(s): Patient has one child that from cancer throughout his body at the time of diagnosis. 3 children with no major medical problems. Father Family Medical History: Cancer Additional Family Medical History / Comment(s): Father at age 45 from stomach cancer Medications and Allergies Home Medications Medication Instructions Recorded Confirmed Type Levothyroxine Sodium [Synthroid] 25 mcg PO QAM 12/11/13 08/12/16 History Omeprazole [PriLOSEC] 20 tab PO Q48H 12/11/13 08/12/16 History Aspirin EC [Ecotrin Low Dose] 81 mg PO HS 08/21/14 08/12/16 History Multivitamins, Thera [Multivitamin] 1 tab PO HS 08/21/14 08/12/16 History Ergocalciferol [Vitamin D2 50,000 unit PO QMONTH 07/13/15 08/12/16 History (DRISDOL)] Furosemide [Lasix] 20 mg PO QAM 07/13/15 08/12/16 History Ipratropium-Albuterol Nebulize 3 ml INHALATION RT-TID 07/13/15 08/12/16 History [Duoneb 0.5 mg-3 mg/3 ml Soln] Losartan [Cozaar] 25 mg PO QAM 07/13/15 08/12/16 History Acetaminophen Tab [Tylenol Tab] 325 mg PO Q6H PRN 08/12/16 08/12/16 History Bimatoprost [Lumigan .01% Ophth 1 drop BOTH EYES DAILY 08/12/16 08/12/16 History Soln] Dorzolamide 2% [Trusopt 2%] 1 drops BOTH EYES BID 08/12/16 08/12/16 History Meclizine [Antivert] 25 mg PO TID PRN 08/12/16 08/12/16 History Brimonidine Tartrate [Alphagan P 1 drops BOTH EYES Q12HR 08/13/16 08/13/16 History 0.2% Ophth Soln] Allergies Allergy/AdvReac Type Severity Reaction Status Date / Time No Known Allergies Allergy Verified 08/12/16 16:46 Physical Exam Vitals: Vital Signs Temp Pulse Pulse Resp BP Pulse Ox 08/15/16 07:00 97 F L 77 20 116/55 96 08/15/16 00:00 16 08/14/16 22:47 97.1 F L 77 16 111/55 93 L 08/14/16 20:27 78 08/14/16 20:12 76 08/14/16 16:41 76 08/14/16 16:32 72 08/14/16 15:52 98.3 F 64 18 117/59 98 08/14/16 12:30 80 08/14/16 12:09 82 Intake and Output 08/14/16 08/15/16 08/15/16 22:59 06:59 14:59 Intake Total 590 Balance 590 Intake: Oral 590 Other: Voiding Method Toilet Toilet Bedside Commode Bedside Commode # Voids 1 2 Weight 68 kg General: The patient is awake and alert, in no distress, and does not appear acutely ill. Skin: Skin is warm and dry and no rashes or lesions are noted. Eye: Pupils are equal, round and reactive to light, extra-ocular movements are intact; there is normal conjunctiva bilaterally. Ears, nose, mouth and throat: There are moist mucous membranes and no oral lesions. Neck: The neck is supple, there is no tenderness or JVD. Cardiovascular: There is a regular rate and rhythm. Systolic murmur at the left lower sternal border Respiratory: Lungs are clear to auscultation, respirations are non-labored, breath sounds are equal. Gastrointestinal: Soft, non-distended, non-tender abdomen without masses or organomegaly noted. There is no rebound or guarding present. Bowel sounds are unremarkable. Back: There is no tenderness to palpation in the midline. There is no obvious deformity. Musculoskeletal: Normal ROM, no tenderness, There is no pedal edema. There is no calf tenderness or swelling. Extremities: Bilateral leg edema edema. Vascular: Femoral pulse is normal. Posterior tibial pulses are normal .Dorsalis pedis is palpable. Neurological: CN II-XII intact. There are no obvious motor or sensory deficits. Speech is normal. Psychiatric: Cooperative, appropriate mood & affect, normal judgment. Results 08/12/16 17:53 08/15/16 07:00 Comprehensive Metabolic Panel 08/15/16 Range/Units 07:00 Sodium 138 (137-145) mmol/L Potassium 3.7 (3.5-5.1) mmol/L Chloride 98 (98-107) mmol/L Carbon Dioxide 29 (22-30) mmol/L BUN 41 H (7-17) mg/dL Creatinine 2.34 H (0.52-1.04) mg/dL Glucose 139 H (74-99) mg/dL Calcium 8.7 (8.4-10.2) mg/dL Current Medications Generic Name Dose Route Start Last Admin Trade Name Freq PRN Reason Stop Dose Admin Acetaminophen 325 mg 08/12/16 19:37 Tylenol Tab PO Q6H PRN Pain Albuterol/Ipratropium 3 ml 08/13/16 19:25 Duoneb 0.5 Mg-3 Mg/3 Ml Soln INHALATION RT-QID PRN Shortness Of Breath Or Wheezing Albuterol/Ipratropium 3 ml 08/13/16 20:00 08/15/16 07:21 Duoneb 0.5 Mg-3 Mg/3 Ml Soln INHALATION 3 ml RT-QID ANG Administration Aspirin 81 mg 08/12/16 21:00 08/14/16 20:00 Aspirin PO 81 mg HS ANG Administration Azithromycin 500 mg 08/15/16 12:00 Zithromax PO DAILY@1200 ANG Brimonidine Tartrate 1 drops 08/13/16 21:00 08/15/16 08:32 Alphagan P 0.2% Ophth Soln BOTH EYES 1 drops Q12HR ANG Administration Budesonide 1 mg 08/13/16 20:00 08/15/16 07:21 Pulmicort INHALATION 1 mg RT-BID ANG Administration Carvedilol 6.25 mg 08/13/16 07:30 08/15/16 08:33 Coreg PO 6.25 mg AC-BID ANG Administration Dorzolamide HCl 1 drops 08/12/16 21:00 08/15/16 08:32 Trusopt BOTH EYES 1 drops BID ANG Administration Furosemide 40 mg 08/13/16 09:00 08/15/16 08:33 Lasix IV 40 mg Q12HR ANG Administration Guaifenesin 200 mg 08/13/16 10:26 08/15/16 08:42 Robitussin PO 200 mg Q6H PRN Administration Cough Sodium Chloride 1,000 mls @ 20 mls/hr 08/12/16 19:45 08/15/16 08:42 Saline 0.9% IV 20 mls/hr .Q24H ANG Administration Ceftriaxone Sodium 1,000 mg/ 50 mls @ 100 mls/hr 08/13/16 12:00 08/15/16 08: 29 Sodium Chloride IVPB 100 mls/hr Q24HR ANG Administration Latanoprost 1 drops 08/13/16 09:00 08/15/16 08:28 Xalatan 0.005% BOTH EYES 1 drops DAILY ANG Administration Levothyroxine Sodium 25 mcg 08/13/16 06:30 08/15/16 05:31 Synthroid PO 25 mcg 0630 ANG Administration Losartan Potassium 25 mg 08/13/16 09:00 08/15/16 08:33 Cozaar PO 25 mg QAM ANG Administration Meclizine HCl 25 mg 08/12/16 19:37 Antivert PO TID PRN Vertigo Nitroglycerin 0.5 inch 08/13/16 00:00 08/15/16 05:31 Nitro-Bid Oint TOPICAL 0.5 inch Q6HR ANG Administration Pantoprazole Sodium 40 mg 08/12/16 21:00 08/14/16 20:00 Protonix PO 40 mg Q48H ANG Administration Intake and Output 08/14/16 08/15/16 08/15/16 22:59 06:59 14:59 Intake Total 590 Balance 590 Intake: Oral 590 Other: Voiding Method Toilet Toilet Bedside Commode Bedside Commode # Voids 1 2 Weight 68 kg 08/15/16 07:00 - Imaging and Cardiology Echo: image reviewed EKG Interpretations (text) Normal sinus rhythm with left bundle branch block Assessment and Plan Plan: Acute exacerbation of chronic systolic heart failure #2 acute exacerbation of chronic COPD Acute on chronic renal failure I reviewed her medications reviewed the echocardiogram reviewed old records x- rays EKGs rhythm strips and labs. Patient has significant elevation in creatinine. I'm going to cut back on the dose of Lasix.
--- NOTE | 2016-08-15 12:05 | P.PN ---
Subjective This is an 89-year-old female patient of Dr. Bobby Camarillo and she also follows with Dr. Samayoa and Dr. Moore. She sees Dr. Camarillo every 6 months and she has an appointment next week. She has underlying history of hypothyroidism, CAD, hypertension and breast cancer diagnosed in 2002, COPD, chronic kidney disease stage III, bilateral glaucoma under the care of Dr. Salgado. Patient complains of shortness of breath with cough and yellow sputum production. She denies any fever or chills. She states she has wheezing at night. She states she has been using her nebulizer 3 times a day without any improvement. She presented to [facility] emergency center with the above complaints. Chest x-ray showed large hiatal hernia. Mild cardiomegaly. No acute lung disease. No change. CBC was within normal limits. BUN 23 and creatinine 1.63. Her baseline appears to be about 1.6. ProBNP was 3970. Influenza testing and B-. [facility] and consult with Dr. Samayoa requested. Patient will be placed on Rocephin and azithromycin as well as DuoNeb treatments, Pulmicort, IV Lasix. 08/14: Echocardiogram reveals trace mitral regurgitation, trace tricuspid regurgitation, severe concentric left ventricular hypertrophy, severe global hypokinesia of LV, EF 20-25%. Patient is doing unit on IV Lasix 40 mg every 12 hours. Cardiology consult requested. Repeat labs showed BUN of 33 and creatinine 1.89. PT and OT have been added. Is complaining of cough. No worsening shortness of breath. 08/15: Repeat BUN 41 creatinine 2.34. She is currently on Lasix 40 mg IV every 12 hours changed to daily by Dr. Adorno. She has lost 8 kg. She has been afebrile. Blood culture showing no growth. Family and patient would like rehab to [facility] or [facility]. risk control manager updated. Plan discharge for tomorrow. Patient states that her breathing is improved. she is complaining of discomfort in neck and back. Objective - Vital Signs Vital signs: Vital Signs Temp 97 F L 08/15/16 07:00 Pulse 77 08/15/16 07:00 Resp 20 08/15/16 07:00 BP 116/55 08/15/16 07:00 Pulse Ox 96 08/15/16 07:00 Intake & Output 08/14/16 08/15/16 08/15/16 18:59 06:59 18:59 Intake Total 590 Balance 590 Weight 68 kg Intake: Oral 590 Other: Voiding Method Toilet Toilet Bedside Commode Bedside Commode # Voids 1 2 - Labs CBC & Chem 7: 08/12/16 17:53 08/15/16 07:00 Labs: Abnormal Lab Results - Last 24 Hours (Table) 08/15/16 Range/Units 07:00 BUN 41 H (7-17) mg/dL Creatinine 2.34 H (0.52-1.04) mg/dL Glucose 139 H (74-99) mg/dL Assessment and Plan Plan: 1. Acute exacerbation of COPD with purulent tracheobronchitis and acute on chronic systolic heart failure. Consult with Dr. Samayoa appreciated. Continue DuoNeb treatments and Pulmicort twice daily. Continue Mucinex, Robitussin. Patient states she is unable to take oral steroids or IV steroids due to glaucoma. Continue azithromycin and ceftriaxone. Continue Lasix 40 mg IV daily. Echocardiogram as above. Cardiology consult appreciated. 2. Hypertension. Continue Cozaar 25 mg daily, Coreg 6.25 mg twice daily. 3. Hypothyroidism. Continue levothyroxine 25 g daily. 4. Glaucoma. Continue eyedrops. 5. Acute kidney injury with chronic kidney disease stage III. Ovoid nephrotoxic agents. 6. Gastrointestinal prophylaxis. Protonix. 7. DVT prophylaxis. Lovenox. Discharge plan: Subacute rehab at [facility] or [facility] tomorrow. Impression and plan of care have been directed as dictated by the signing physician. Laura Castellanos nurse practitioner acting as scribe for signing physician. Time with Patient: Greater than 30
[2016-08-15] MEDS: AZITHROMYCIN 500 MG TAB PO SCH (12:29)
[2016-08-15] MEDS: ASPIRIN 81 MG CHEW PO SCH (20:20)
[2016-08-16] MEDS: LEVOTHYROXINE 25 MCG TAB PO SCH (05:29)
[2016-08-16] MEDS: SODIUM CHLORIDE 0.9% 1,000 ML IV SCH (07:47)
[2016-08-16 07:49] VITALS: BP 141/70; RESP 16; TEMP 97.7
[2016-08-16] MEDS: DORZOLAMIDE HCL 2% DROPS 10 ML BTL BOTH EYES SCH (07:50)
[2016-08-16] MEDS: LATANOPROST 0.005% OPHTH DROPS 2.5 ML BTL BOTH EYES SCH ×2 (07:50→07:55)
[2016-08-16] MEDS: LOSARTAN 25 MG TAB PO SCH (07:50)
[2016-08-16] MEDS: CARVEDILOL 6.25 MG TAB PO SCH (07:50)
[2016-08-16] MEDS: BRIMONIDINE TARTRATE 0.2% DROPS 5 ML BTL BOTH EYES SCH (07:56)
[2016-08-16 08:09] LABS: Basophils % (A) 0 %; CH 28.9; CHCM 30.6; Eosinophils # (A) 0.1 k/uL (0-0.7); Eosinophils % (A) 1 %; HCT 36.1 % (34.0-46.0); HDW 2.56; HGB 10.9 gm/dL (11.4-16.0); Hypochromasia Slight; Luc # (Auto) 0.21; Luc % (Auto) 2; Lymphocytes # (A) 0.7 k/uL (1.0-4.8); Lymphocytes % (A) 7 %; MCH 28.6 pg (25.0-35.0); MCHC 30.2 g/dL (31.0-37.0); MCV 94.5 fL (80.0-100.0); Mean Platelet Volume 7.7; Monocytes # (A) 0.5 k/uL (0-1.0); Monocytes % (A) 5 %; Neutrophils # (A) 8.1 k/uL (1.3-7.7); Neutrophils % (A) 85 %; RBC 3.81 m/uL (3.80-5.40); RDW 12.3 % (11.5-15.5); WBC 9.5 k/uL (3.8-10.6); WBC (Perox) 9.89
[2016-08-16] MEDS: BUDESONIDE 1 MG/2 ML NEBU INHALATION SCH (08:25)
[2016-08-16] MEDS: IPRATROPIUM-ALBUTEROL 3 ML NEB INHALATION SCH ×2 (08:25→12:15)
--- NOTE | 2016-08-16 08:28 | P.DS ---
Providers Date of admission: 08/12/16 19:55 Expected date of discharge: 08/16/16 Attending physician: Bismark Perry Consults: 08/14/16 11:56 Consult Physician Routine Consulting Provider: Angel Adorno Consult Reason/Comments: CHF Do you want consulting provider notified?: Yes [facility] Course: This is an 89-year-old female patient of Dr. Bobby Camarillo and she also follows with Dr. Samayoa and Dr. Moore. She sees Dr. Camarillo every 6 months and she has an appointment next week. She has underlying history of hypothyroidism, CAD, hypertension and breast cancer diagnosed in 2002, COPD, chronic kidney disease stage III, bilateral glaucoma under the care of Dr. Salgado. Patient complains of shortness of breath with cough and yellow sputum production. She denies any fever or chills. She states she has wheezing at night. She states she has been using her nebulizer 3 times a day without any improvement. She presented to [facility] emergency center with the above complaints. Chest x-ray showed large hiatal hernia. Mild cardiomegaly. No acute lung disease. No change. CBC was within normal limits. BUN 23 and creatinine 1.63. Her baseline appears to be about 1.6. ProBNP was 3970. Influenza testing and B-. Patient was placed on [facility] floor and consult with Dr. Samayoa requested. Patient will be placed on Rocephin and azithromycin as well as DuoNeb treatments, Pulmicort, IV Lasix. 08/14: Echocardiogram reveals trace mitral regurgitation, trace tricuspid regurgitation, severe concentric left ventricular hypertrophy, severe global hypokinesia of LV, EF 20-25%. Patient is doing unit on IV Lasix 40 mg every 12 hours. Cardiology consult requested. Repeat labs showed BUN of 33 and creatinine 1.89. PT and OT have been added. Is complaining of cough. No worsening shortness of breath. 08/15: Repeat BUN 41 creatinine 2.34. She is currently on Lasix 40 mg IV every 12 hours changed to daily by Dr. Adorno. She has lost 8 kg. She has been afebrile. Blood culture showing no growth. Family and patient would like rehab to [facility] or [facility]. fleet manager/dispatch updated. Plan discharge for tomorrow. Patient states that her breathing is improved. she is complaining of discomfort in neck and back. 08/16: Repeat BUN 50 and Creatinine 2.87. Patient will be discharged to [facility] today under Dr. Kenney. Repeat labs on Friday. Patient to be evaluated at [facility] for home O2. Discharge diagnoses: 1. Acute exacerbation of COPD with purulent tracheobronchitis and acute on chronic systolic heart failure. 2. Hypertension. 3. Hypothyroidism. 4. Glaucoma. 5. Acute kidney injury with chronic kidney disease stage III. Discharge plan: Subacute rehab at [facility] Impression and plan of care have been directed as dictated by the signing physician. Laura Castellanos nurse practitioner acting as scribe for signing physician. Patient Condition at Discharge: Good Plan - Discharge Summary New Discharge Prescriptions: Azithromycin [Zithromax] 500 mg PO DAILY@1200 #5 tab Discharge Medication List Levothyroxine Sodium [Synthroid] 25 mcg PO QAM 12/11/13 [History] Omeprazole [PriLOSEC] 20 tab PO Q48H 12/11/13 [History] Aspirin EC [Ecotrin Low Dose] 81 mg PO HS 08/21/14 [History] Multivitamins, Thera [Multivitamin] 1 tab PO HS 08/21/14 [History] Budesonide [Pulmicort] 0.5 mg INHALATION RT-BID #60 nebu 08/25/14 [Rx] Carvedilol [Coreg] 6.25 mg PO AC-BID #60 tab 08/25/14 [Rx] Ergocalciferol [Vitamin D2 (DRISDOL)] 50,000 unit PO QMONTH 07/13/15 [History] Losartan [Cozaar] 25 mg PO QAM 07/13/15 [History] Acetaminophen Tab [Tylenol] 325 mg PO Q6H PRN 08/12/16 [History] Bimatoprost [Lumigan .01% Ophth Soln] 1 drop BOTH EYES DAILY 08/12/16 [History] Dorzolamide 2% [Trusopt 2%] 1 drops BOTH EYES BID 08/12/16 [History] Meclizine [Antivert] 25 mg PO TID PRN 08/12/16 [History] Brimonidine Tartrate [Alphagan P 0.2% Ophth Soln] 1 drops BOTH EYES Q12HR [History] Azithromycin [Zithromax] 500 mg PO DAILY@1200 #5 tab 08/16/16 [Rx] Budesonide [Pulmicort] 1 mg INHALATION RT-BID nebu 08/16/16 [Rx] Furosemide [Lasix] 40 mg PO QAM #0 08/16/16 [Rx] Ipratropium-Albuterol Nebulize [Duoneb 0.5 mg-3 mg/3 ml Soln] 3 ml INHALATION RT -QID ampul.neb 08/16/16 [Rx] guaiFENesin SYRUP 100MG/5ML [Robitussin] 200 mg PO Q6H PRN #0 cup 08/16/16 [Rx] Follow up Appointment(s)/Referral(s): sAa Samayoa MD [STAFF PHYSICIAN] - 1 Week Jamaal Camarillo MD [Primary Care Provider] - 1 Week (after discharge from [facility]) Ambulatory/Diagnostic Orders: Basic Metabolic Panel [LAB.AMB] Location: Determined By Patient Complete Blood Count w/diff [LAB.AMB] Location: Determined By Patient Activity/Diet/Wound Care/Special Instructions: Eval for HOME O2 at [facility].
[2016-08-16 08:35] LABS: Calcium 8.6 mg/dL (8.4-10.2); Potassium 4.1 mmol/L (3.5-5.1)
[2016-08-16] MEDS ORDERED: FUROSEMIDE 10 MG/ML 4 ML VIAL IV SCH (09:00)
[2016-08-16 12:23] VITALS: PULSE 76
--- NOTE | 2016-08-16 12:24 | P.PN ---
Subjective This is an 89-year-old female evaluated and examined today on the fifth floor. This patient is known to our office. This patient came into the emergency room complaining of shortness of breath and low back pain. She states that recently her oncologist gave her antibiotics and it did not alter, and the coughing continued with white sputum. The patient feels that all the coughing has caused her to have the back pain, and the pain is making it difficult to ambulate. The patient denies any chest pain, fevers, chills, nausea, vomiting, diarrhea or sweats. The patient was influenza negative. Upon examination the patient is resting up in bed she continues to complain of the chronic persistent cough, sputum has subsided. The patient overall feels well and would like to be discharged. Objective - Vital Signs Vital signs: Vital Signs Temp 97.7 F 08/16/16 07:00 Pulse 76 08/16/16 12:22 Resp 16 08/16/16 08:00 BP 141/70 08/16/16 07:00 Pulse Ox 91 L 08/16/16 07:00 Intake & Output 08/15/16 08/16/16 08/16/16 18:59 06:59 18:59 Intake Total 210 250 Balance 210 250 Weight 69 kg 69 kg Intake: IV 160 Sodium Chloride 0.9% 1, 160 000 ml @ 20 mls/hr IV . Q24H ANG Rx#:[id number] Intake, IV Titration 50 Amount cefTRIAXone 1,000 mg In 50 Sodium Chloride 0.9% 50 ml @ 100 mls/hr IVPB Q24HR ANG Rx#:[id number] Oral 250 Other: Voiding Method Toilet Toilet Toilet Bedside Commode Bedside Commode Bedside Commode # Voids 3 1 1 - Exam GENERAL EXAM: Alert, active, comfortable in no apparent distress. HEAD: Normocephalic. EYES: Normal reaction of pupils, equal size. NOSE: Clear with pink turbinates. THROAT: No erythema or exudates. NECK: No masses, no JVD. CHEST: No chest wall deformity. LUNGS: Equal air entry with faint expiratory wheezes. Bases are diminished. CVS: S1 and S2 normal with no audible mumurs, regular rhythm. ABDOMEN: No hepatosplenomegaly, normal bowel sounds, no guarding or rigidity. EXTREMITIES: No edema noted, pedal pulses palpable. SKIN: No rashes CENTRAL NERVOUS SYSTEM: No focal deficits, tone is normal in all 4 extremities. - Labs CBC & Chem 7: 08/16/16 07:39 08/16/16 07:39 Labs: Abnormal Lab Results - Last 24 Hours (Table) 08/16/16 08/16/16 Range/Units 07:39 07:39 Hgb 10.9 L (11.4-16.0) gm/dL MCHC 30.2 L (31.0-37.0) g/dL Neutrophils # 8.1 H (1.3-7.7) k/uL Lymphocytes # 0.7 L (1.0-4.8) k/uL Sodium 136 L (137-145) mmol/L Chloride 94 L (98-107) mmol/L Carbon Dioxide 31 H (22-30) mmol/L BUN 50 H (7-17) mg/dL Creatinine 2.87 H (0.52-1.04) mg/dL Glucose 147 H (74-99) mg/dL Assessment and Plan Plan: Assessment Acute exacerbation of COPD Tracheobronchitis Acute Hypoxemia Exertional dyspnea Congestive heart failure History of hypertension Plan Patient can be cleared from a pulmonary standpoint for discharge. Medications reviewed and will be continued. Continue with nebulizer treatments. Continue with guaifenesin cough syrup as well as a flutter valve to help bring up her secretions. Continue with supportive care. Continue with supplemental oxygen to keep saturations above 92%. Echocardiogram revealed an EF of 20-25%. We will continue to monitor labs and adjust treatment as necessary. I performed an examination of the patient and discussed their management with the nurse practitioner. I have reviewed the nurse practitioner's note and agree with the documented findings and plan of care.
[2016-08-16] MEDS: AZITHROMYCIN 500 MG TAB PO SCH (12:51)
== END 2016-08-16 14:10 | DRG 190 ==
LOC: EC 15:32 → 5MS5E 19:55
PROVIDERS: ADMIT Internal Medicine Geriatric Medicine; ATTEND Internal Medicine Geriatric Medicine
DX: J44.0 Chronic obstructive pulmonary disease with (acute) lower respiratory infection (principal); I50.23 Acute on chronic systolic (congestive) heart failure; N17.9 Acute kidney failure, unspecified; I13.0 Hypertensive heart and chronic kidney disease with heart failure and stage 1 through stage 4 chronic kidney disease, or unspecified chronic kidney disease; N18.3 Chronic kidney disease, stage 3 (moderate); J20.9 Acute bronchitis, unspecified; I44.7 Left bundle-branch block, unspecified; J44.1 Chronic obstructive pulmonary disease with (acute) exacerbation; E03.9 Hypothyroidism, unspecified; H40.9 Unspecified glaucoma; I25.10 Atherosclerotic heart disease of native coronary artery without angina pectoris; M19.90 Unspecified osteoarthritis, unspecified site; K44.9 Diaphragmatic hernia without obstruction or gangrene; Z96.653 Presence of artificial knee joint, bilateral; Z85.3 Personal history of malignant neoplasm of breast; Z79.82 Long term (current) use of aspirin; Z79.51 Long term (current) use of inhaled steroids; Z79.899 Other long term (current) drug therapy
CPT/HCPCS: 36415; 71020; 80048; 80053; 82550; 82553; 83735; 83880; 84484; 85025; 85610; 85730; 87040; 87502; 93005; 93306; 94640; 96374; 96375; 99291